=== PATIENT | male | born 1945 | race Asian ===

== ENCOUNTER 2018-01-07 22:17 | Emergency (ER) | payer MEDICARE, OTHER ==
[~2018-01-07] VITALS: Ht 172.7 cm; Wt 95.3 kg
[~2018-01-07 22:17] MED LIST: CIPROFLOXACIN500 M2 ORAL; FLOMAX0.4 MG ORAL; IBUPROFEN600 MG ORAL; NKM; NORCO 5-325 TA1 EACH ORAL; TRAMADOL HCL50 MG ORAL
[2018-01-07] MEDS ORDERED: Tetanus/Diptheria/Pertussis Vaccine 0.5ml Syr IM ONE (22:45)
[2018-01-07 22:59] VITALS: BP 130/81
[2018-01-07] MEDS ORDERED: Bacitracin Oint UD TOPIC ONE (23:15)
[2018-01-08] MEDS ORDERED: IBUPROFEN600 MG ORAL (00:39)
[2018-01-08 01:17] VITALS: BP_SYST 128; BP_SYST 130; BP_DIAS 70; BP_DIAS 75
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
--- NOTE | 2018-01-08 10:49 | Diagnostic Imaging Report ---
Indication: Trauma and facial pain Technique: Continuous helical transaxial imaging of the maxillofacial structures obtained without intravenous contrast administration. Coronal 2-D reformats were also obtained. Study obtained in a Siemens sensation [address] Automatic Exposure Control was utilized. Total Dose length Product (DLP): 645.[address] Dose Index Volume (CTDIvol): 28.19 mGy Comparison: None Findings: There is no evidence of an acute fracture. Paranasal sinuses are notable for some mild mucosal thickening. The orbits appear normal bilaterally. There is mild left periorbital soft tissue swelling. TMJs are unremarkable. Mild degenerative changes of the cervical spine noted characterized by vertebral endplate osteophytes and the facet spur formation. Soft tissues are unremarkable. IMPRESSION: No acute injury appreciated. Mild sinusitis Degenerative changes of cervical spine [facility] has communicated the preliminary results to the Emergency Department. Their findings are largely concordant with this report. The CT scanner at [facility] is accredited by the [place] [employer] and the scans are performed using dose optimization techniques as appropriate to a performed exam including Automatic Exposure control.
--- NOTE | 2018-01-08 11:21 | Diagnostic Imaging Report ---
Indication: Right shoulder pain Findings: 3 views of the right shoulder were obtained. No acute fractures, malalignment, erosions or periostitis are identified. Soft tissues are unremarkable. Impression: Negative for acute injury
--- NOTE | 2018-01-08 11:26 | Diagnostic Imaging Report ---
Indication: Knee Pain 3 views of the left knee were obtained. Findings: No acute fracture, malalignment, or joint effusion are identified. Joint space is relatively well-maintained. Impression: Negative for acute injury
== END 2018-01-08 01:17 | disposition home or self-care (01) ==
LOC: EMR 23:01
DX: S00.83XA Contusion of other part of head, initial encounter (principal); S80.02XA Contusion of left knee, initial encounter; S40.011A Contusion of right shoulder, initial encounter; V18.0XXA Pedal cycle driver injured in noncollision transport accident in nontraffic accident, initial encounter; Y93.55 Activity, bike riding; Y92.9 Unspecified place or not applicable; Z23 Encounter for immunization
CPT/HCPCS: 70486; 90471; 90715; 99284